=== PATIENT | male | born 1940 | race Caucasian/White ===

== ENCOUNTER 2017-02-12 01:41 | Observation (INO) | payer MEDICARE ==
[~2017-02-12] VITALS: Ht 177.8 cm; Wt 79.6 kg
[2017-02-12] VITALS (11 sets, daily range): BP systolic 120–157; BP diastolic 53–78
[~2017-02-12 01:41] MED LIST: FLUZONE SPLT1 M1 IM; LISINOPRIL5 MG PO; SIMVASTATIN40 MG PO
[2017-02-12] MEDS ORDERED: PROSCAR5 MG PO (02:15)
[2017-02-12] MEDS ORDERED: ARNUITY EL100 MCG/AC (02:17)
[2017-02-12] MEDS ORDERED: PEPCID AC10 M1 PO (02:17)
[2017-02-12] MEDS ORDERED: ASPIRIN 81 LOW81 MG PO (02:18)
[2017-02-12] MEDS ORDERED: MULTI VIT PO (02:18)
[2017-02-12] MEDS ORDERED: CALCIUM500 M5 PO (02:19)
[2017-02-12] MEDS ORDERED: IMATINIB MESYL400 MG PO (02:20)
[2017-02-12 02:23] LABS: HEMOGLOBIN 13.3 g/dl (14.0-18.0); IMMATURE GRANULOCYTES 0.1 % (0.0-1.0); MEAN CELL VOLUME 95.1 fL CALC (80.0-100.0); MEAN CORPUSCULAR HGB 32.4 pG CALC (26.0-32.0); MEAN CORPUSCULAR HGB CONC 34.1 g/L CALC (32.0-36.0); NEUT# 3.86 thou/uL (1.82-7.42); RED BLOOD COUNT 4.1 mill/uL (4.70-6.10); RED CELL DISTRI WIDTH 13.5 % (11.5-15.5)
[2017-02-12 02:42] LABS: ALBUMIN 4.3 g/dL (3.2-5.0); ALKALINE PHOSPHATASE 73 u/l (38-126); AMYLASE 80 u/l (30-110); ANION GAP 15 (6-22 (CALC)); BILIRUBIN, TOTAL 0.5 mg/dL (0.0-1.4); BUN 18 mg/dL (8-23); BUN/CREATININE RATIO 14 (12-20 (CALC)); CALCIUM 9.4 mg/dL (8.4-10.2); CARBON DIOXIDE 30 mmol/l (22-30); CHLORIDE 101 mmol/l (95-108); CREATININE 1.3 mg/dL (0.7-1.3); GFR 54 ML/MIN (>=60 (CALC)); GFR FOR AFR.AMER. > 60 ML/MIN (>=60 (CALC)); GLUCOSE 162 mg/dL (82-115); LIPASE 310 u/l (23-300); POTASSIUM 3.2 mmol/l (3.5-5.1); SGOT/AST 36 u/l (19-48); SGPT/ALT 29 u/l (11-66); SODIUM 142 mmol/l (137-146); TOTAL PROTEIN 7.5 g/dL (6.3-8.2)
[2017-02-12 02:53] LABS: MYOGLOBIN 43 ng/mL (0 - 121)
[2017-02-12 06:00] LABS: URINE BILIRUBIN - DIPSTICK NEGATIVE (NEGATIVE); URINE BLOOD DIPSTICK NEGATIVE (NEGATIVE); URINE CLARITY CLEAR; URINE COLOR YELLOW; URINE GLUCOSE - DIPSTICK NEGATIVE (NEGATIVE); URINE KETONE NEGATIVE (NEGATIVE); URINE LEUK ESTERASE NEGATIVE (NEGATIVE); URINE NITRITE - DIPSTICK NEGATIVE (Negative); URINE PROTEIN - DIPSTICK NEGATIVE (NEG-TRACE); URINE UROBILINOGEN - DIPSTICK 0.2 E.U./dL (0.2)
[2017-02-13 04:54] VITALS: BP 147/74
[2017-02-13 05:48] LABS: HEMATOCRIT 33.8 % (39.0-50.0); HEMOGLOBIN 11.4 g/dl (14.0-18.0); IMMATURE GRANULOCYTES 0.4 % (0.0-1.0); MEAN CELL VOLUME 96.6 fL CALC (80.0-100.0); MEAN CORPUSCULAR HGB 32.6 pG CALC (26.0-32.0); MEAN CORPUSCULAR HGB CONC 33.7 g/L CALC (32.0-36.0); NEUT# 5.78 thou/uL (1.82-7.42); RED BLOOD COUNT 3.5 mill/uL (4.70-6.10); RED CELL DISTRI WIDTH 13.6 % (11.5-15.5)
[2017-02-13 05:55] LABS: ALBUMIN 3.2 g/dL (3.2-5.0); ALKALINE PHOSPHATASE 54 u/l (38-126); ANION GAP 11 (6-22 (CALC)); BILIRUBIN, TOTAL 0.5 mg/dL (0.0-1.4); BUN 12 mg/dL (8-23); BUN/CREATININE RATIO 14 (12-20 (CALC)); CALCIUM 8.3 mg/dL (8.4-10.2); CARBON DIOXIDE 27 mmol/l (22-30); CHLORIDE 103 mmol/l (95-108); CREATININE 0.9 mg/dL (0.7-1.3); GFR > 60 ML/MIN (>=60 (CALC)); GFR FOR AFR.AMER. > 60 ML/MIN (>=60 (CALC)); GLUCOSE 130 mg/dL (82-115); POTASSIUM 3.3 mmol/l (3.5-5.1); SGOT/AST 62 u/l (19-48); SGPT/ALT 47 u/l (11-66); SODIUM 138 mmol/l (137-146); TOTAL PROTEIN 5.5 g/dL (6.3-8.2)
[2017-02-13 07:22] VITALS: BP 136/72
[2017-02-13 11:11] VITALS: BP 134/79
[2017-02-13] MEDS ORDERED: LORTAB 5-325 MG1 TAB PO (11:32)
== END 2017-02-13 12:55 | disposition home or self-care (01) ==
LOC: ENPENDDIS → ED 01:41 → ED-I 06:30 → ED 06:39 → MS2 06:40
PROVIDERS: Emergency Medicine; Internal Medicine; ADMIT Internal Medicine; ATTEND Internal Medicine
PROC: 0FT44ZZ Resection of Gallbladder, Percutaneous Endoscopic Approach (ICD-10-PCS; principal; 2017-02-12)
DX: K80.00 Calculus of gallbladder with acute cholecystitis without obstruction (principal); E87.6 Hypokalemia; C95.90 Leukemia, unspecified not having achieved remission; E78.5 Hyperlipidemia, unspecified; E11.9 Type 2 diabetes mellitus without complications; N40.0 Benign prostatic hyperplasia without lower urinary tract symptoms; Z79.899 Other long term (current) drug therapy
CPT/HCPCS: J1956; J2710; Q9967; S0164

== ENCOUNTER 2017-04-25 00:06 | Emergency (ER) | payer MEDICARE ==
[~2017-04-25] VITALS: Ht 177.8 cm; Wt 79.1 kg
[~2017-04-25 00:06] MED LIST changes: +ARNUITY EL100 MCG/AC; +ASPIRIN 81 LOW81 MG PO; +CALCIUM500 M5 PO; +IMATINIB MESYL400 MG PO; +LORTAB 5-325 MG1 TAB PO; +MULTI VIT PO; +PEPCID AC10 M1 PO; +PROSCAR5 MG PO
[2017-04-25 01:10] LABS: HEMATOCRIT 38.2 % (39.0-50.0); HEMOGLOBIN 13.2 g/dl (14.0-18.0); IMMATURE GRANULOCYTES 0.4 % (0.0-1.0); MEAN CELL VOLUME 94.3 fL CALC (80.0-100.0); MEAN CORPUSCULAR HGB 32.6 pG CALC (26.0-32.0); MEAN CORPUSCULAR HGB CONC 34.6 g/L CALC (32.0-36.0); NEUT# 12.27 thou/uL (1.82-7.42); RED BLOOD COUNT 4.05 mill/uL (4.70-6.10); RED CELL DISTRI WIDTH 14.5 % (11.5-15.5)
[2017-04-25 01:28] LABS: ALBUMIN 4.4 g/dL (3.2-5.0); ALKALINE PHOSPHATASE 58 u/l (38-126); ANION GAP 14 (6-22 (CALC)); BILIRUBIN, TOTAL 0.5 mg/dL (0.0-1.4); BUN 15 mg/dL (8-23); BUN/CREATININE RATIO 16 (12-20 (CALC)); CALCIUM 9.5 mg/dL (8.4-10.2); CARBON DIOXIDE 26 mmol/l (22-30); CHLORIDE 106 mmol/l (95-108); CREATININE 0.9 mg/dL (0.7-1.3); GFR > 60 ML/MIN (>=60 (CALC)); GFR FOR AFR.AMER. > 60 ML/MIN (>=60 (CALC)); GLUCOSE 105 mg/dL (82-115); POTASSIUM 3.9 mmol/l (3.5-5.1); SGOT/AST 34 u/l (19-48); SGPT/ALT 40 u/l (11-66); SODIUM 143 mmol/l (137-146); TOTAL PROTEIN 6.7 g/dL (6.3-8.2)
[2017-04-25] MEDS ORDERED: (None)3.5 GM OU (03:01)
[2017-04-25] MEDS ORDERED: CEPHALEXIN500 M1 PO (03:01)
[2017-04-25] MEDS ORDERED: GENTAMICIN15 ML/BTL OU (03:01)
[2017-04-25 03:28] VITALS: BP 139/78
== END 2017-04-25 03:25 | disposition home or self-care (01) ==
LOC: ED 00:06
PROVIDERS: Emergency Medicine
DX: H01.004 Unspecified blepharitis left upper eyelid (principal); H01.001 Unspecified blepharitis right upper eyelid; R44.1 Visual hallucinations; T38.0X5A Adverse effect of glucocorticoids and synthetic analogues, initial encounter; Y92.009 Unspecified place in unspecified non-institutional (private) residence as the place of occurrence of the external cause; I10 Essential (primary) hypertension
CPT/HCPCS: J2060

== ENCOUNTER 2019-08-22 07:03 | Inpatient (IN) | payer MEDICARE ==
[~2019-08-22] VITALS: Ht 177.8 cm; Wt 81.6 kg
[~2019-08-22 07:03] MED LIST changes: +(None)3.5 GM OU; +CEPHALEXIN500 M1 PO; +GENTAMICIN15 ML/BTL OU
[2019-08-22] MEDS ORDERED: COZAAR25 MG PO (07:24)
[2019-08-22 07:34] LABS: HEMATOCRIT 39.6 % (39.0-50.0); HEMOGLOBIN 13.5 g/dl (14.0-18.0); IMMATURE GRANULOCYTES 0.3 % (0.0-5.0); MEAN CELL VOLUME 95.7 fL CALC (80.0-100.0); MEAN CORPUSCULAR HGB 32.6 pG CALC (26.0-32.0); MEAN CORPUSCULAR HGB CONC 34.1 g/L CALC (32.0-36.0); NEUT# 4.02 thou/uL (1.82-7.42); RED BLOOD COUNT 4.14 mill/uL (4.70-6.10); RED CELL DISTRI WIDTH 13.9 % (11.5-15.5)
[2019-08-22 07:44] LABS: ALBUMIN 4.5 g/dL (3.2-5.0); ALKALINE PHOSPHATASE 69 u/l (38-126); BUN 17 mg/dL (8-23); BUN/CREATININE RATIO 13 (12-20 (CALC)); CARBON DIOXIDE 25 mmol/l (22-30); CHLORIDE 103 mmol/l (95-108); CREATININE 1.3 mg/dL (0.7-1.3); GFR 53 ML/MIN (>=60 (CALC)); GFR FOR AFR.AMER. > 60 ML/MIN (>=60 (CALC)); LIPASE 222 u/l (23-300); SGOT/AST 35 u/l (19-48); SODIUM 138 mmol/l (137-146); TOTAL PROTEIN 7.3 g/dL (6.3-8.2)
[2019-08-22 07:46] LABS: ANION GAP 14 (6-22 (CALC)); BILIRUBIN, TOTAL 0.8 mg/dL (0.0-1.4); POTASSIUM 3.9 mmol/l (3.5-5.1)
[2019-08-22 10:10] VITALS: BP 161/75
[2019-08-22 11:24] VITALS: BP 125/75
[2019-08-22 15:13] VITALS: BP 139/71
[2019-08-22 19:07] VITALS: BP 140/76
[2019-08-23 00:50] VITALS: BP 141/76
[2019-08-23 04:00] VITALS: BP 140/71
[2019-08-23 05:52] LABS: HEMATOCRIT 37.6 % (39.0-50.0); HEMOGLOBIN 12.9 g/dl (14.0-18.0); IMMATURE GRANULOCYTES 0.3 % (0.0-5.0); MEAN CELL VOLUME 96.4 fL CALC (80.0-100.0); MEAN CORPUSCULAR HGB 33.1 pG CALC (26.0-32.0); MEAN CORPUSCULAR HGB CONC 34.3 g/L CALC (32.0-36.0); NEUT# 4.44 thou/uL (1.82-7.42); RED BLOOD COUNT 3.9 mill/uL (4.70-6.10)
[2019-08-23 06:14] LABS: ANION GAP 11 (6-22 (CALC)); BUN 14 mg/dL (8-23); BUN/CREATININE RATIO 13 (12-20 (CALC)); CARBON DIOXIDE 26 mmol/l (22-30); CHLORIDE 106 mmol/l (95-108); CREATININE 1.1 mg/dL (0.7-1.3); GFR > 60 ML/MIN (>=60 (CALC)); GFR FOR AFR.AMER. > 60 ML/MIN (>=60 (CALC)); SODIUM 138 mmol/l (137-146)
[2019-08-23 08:08] VITALS: BP 142/75
[2019-08-23 10:52] VITALS: BP 137/73
[2019-08-23 14:59] VITALS: BP 144/78
[2019-08-23] MEDS ORDERED: LEVAQUIN750 MG PO (18:20)
== END 2019-08-23 18:48 | disposition home or self-care (01) | DRG 186 ==
LOC: ED 07:03 → ED-I 08:45 → ED 09:01 → MS2 09:02
PROVIDERS: Nurse Practitioner Family; ADMIT Internal Medicine; ATTEND Internal Medicine
PROC: 0W9B3ZX Drainage of Left Pleural Cavity, Percutaneous Approach, Diagnostic (ICD-10-PCS; principal; 2019-08-22)
DX: J90 Pleural effusion, not elsewhere classified (principal); J18.9 Pneumonia, unspecified organism; C92.11 Chronic myeloid leukemia, BCR/ABL-positive, in remission; Z87.891 Personal history of nicotine dependence; E78.5 Hyperlipidemia, unspecified; N40.0 Benign prostatic hyperplasia without lower urinary tract symptoms; I10 Essential (primary) hypertension; I44.7 Left bundle-branch block, unspecified; E78.00 Pure hypercholesterolemia, unspecified; Z90.49 Acquired absence of other specified parts of digestive tract; Z88.1 Allergy status to other antibiotic agents
CPT/HCPCS: J1956; Q9967